=== PATIENT | male | born 1960 | race Caucasian/White ===

== ENCOUNTER 2018-12-17 12:39 | Inpatient (IN) | payer MEDICARE, OTHER ==
[~2018-12-17] VITALS: Ht 182.9 cm; Wt 104.8 kg
[~2018-12-17 12:39] MED LIST: BENA10TA4 PO; FAMO40TA66; FOLI-49; GABA300C16 PO
[2018-12-17 13:21] VITALS: Ht 182.9 cm; Wt 104.8 kg
[2018-12-17] MEDS ORDERED: LEVALBUTEROL (NEB) 1.25 MG/0.5 ML AMP HHN ONE (16:00)
[2018-12-17] MEDS ORDERED: IPRATROPIUM (NEB) 0.5 MG/2.5 ML AMP HHN ONE (16:00)
[2018-12-17] MEDS ORDERED: PIPER-TAZO 2.25 GM (PMX) 50 ML IVPB ONE (16:30)
[2018-12-17] MEDS ORDERED: SODIUM CHLORIDE 0.9% 1L BAG IV* STA (17:21)
[2018-12-17] MEDS ORDERED: VANCOMYCIN 1 GM (PMX) 250 ML IVPB ONE (19:00)
[2018-12-17] MEDS ORDERED: NACL 0.9% 3 ML SYG IV SCH (19:30)
[2018-12-17] MEDS ORDERED: ONDANSETRON 4 MG INJ IV PRN (19:30)
[2018-12-17] MEDS ORDERED: morphine 2 MG INJ IV PRN (19:30)
[2018-12-17] MEDS ORDERED: ALBUTEROL/IPRATROPIUM (NEB) 3 ML AMP HHN STA (23:51)
[2018-12-17] MEDS ORDERED: DEXTROSE 50% 50 ML SYRINGE ONE (23:58)
[2018-12-18] VITALS (23 sets, daily range): BP systolic 60–111; BP diastolic 42–86; PULSE 115–146; RESP 17–42
[2018-12-18] MEDS ORDERED: NA BICARBONATE 8.4% 50 ML SYG IV STA (00:17)
[2018-12-18] MEDS ORDERED: VANCOMYCIN IV PER PHARMACY XX SCH (00:30)
[2018-12-18] MEDS: VANCOMYCIN 1 GM in 250 ML IVPB ONE ×2 (01:00→04:51)
[2018-12-18] MEDS: PIPER-TAZO 2.25 GM (PMX) 50 ML IVPB SCH ×4 (02:00→18:59)
[2018-12-18] MEDS ORDERED: FUROSEMIDE 40 MG INJ ONE (02:48)
[2018-12-18] MEDS ORDERED: HYDROmorphONE 0.5 MG/0.5 ML SYG ONE (02:49)
[2018-12-18] MEDS ORDERED: FUROSEMIDE 40 MG INJ IV SCH (03:30)
[2018-12-18] MEDS ORDERED: HYDROmorphONE 0.5 MG/0.5 ML SYG IV SCH (03:30)
[2018-12-18] MEDS: PANTOPRAZOLE 40 MG INJ IV SCH (06:10)
[2018-12-18] MEDS ORDERED: DEXTROSE 10% 1,000 ML IV SCH (07:30)
[2018-12-18] MEDS ORDERED: DEXTROSE 50% 50 ML SYRINGE IV ONE ×2 (07:30)
[2018-12-18] MEDS ORDERED: NA BICARBONATE 8.4% 50 ML SYG ONE (08:55)
[2018-12-18] MEDS ORDERED: NA BICARBONATE 8.4% 50 ML SYG IV ONE (09:00)
[2018-12-18] MEDS: DEXTROSE 50% 50 ML SYRINGE IV PRN (09:07)
[2018-12-18] MEDS: SODIUM BICARBONATE IN D5W 1,000 ML IV SCH ×2 (09:32→18:42)
[2018-12-18] MEDS ORDERED: LACTULOSE 30ML CUP PO ONE (10:00)
[2018-12-18] MEDS: LEVALBUTEROL (NEB) 1.25 MG/0.5 ML AMP HHN SCH ×4 (11:22→20:17)
[2018-12-18] MEDS ORDERED: DILTIAZEM 25 MG INJ ONE (12:00)
[2018-12-18] MEDS ORDERED: DILTIAZEM 25 MG INJ IV ONE ×2 (12:30→13:30)
[2018-12-18] MEDS: ALBUMIN HUMAN 25% 100 ML IV SCH ×2 (12:49→19:54)
[2018-12-18] MEDS ORDERED: AMIODARONE 150MG/D5W BOLUS 100 ML IV ONE (14:30)
[2018-12-18] MEDS: AMIODARONE IV SCH ×2 (15:26→20:58)
[2018-12-18] MEDS: VASOPRESSIN 60 UNIT in DEXTROSE 5% 57 ML IV SCH (18:59)
[2018-12-19] VITALS (102 sets, daily range): BP systolic 49–184; BP diastolic 11–107; PULSE 97–148; RESP 20–45
[2018-12-19] MEDS ORDERED: LORAZEPAM 2 MG INJ IV PRN (00:30)
[2018-12-19] MEDS: PIPER-TAZO 2.25 GM (PMX) 50 ML IVPB SCH ×4 (00:31→17:38)
[2018-12-19] MEDS: LEVALBUTEROL (NEB) 1.25 MG/0.5 ML AMP HHN SCH ×3 (01:15→08:10)
[2018-12-19] MEDS: PHENYLephrine 80 MG in DEXTROSE 5% 242 ML IV SCH ×4 (01:36→19:20)
[2018-12-19] MEDS: SODIUM BICARBONATE IN D5W 1,000 ML IV SCH (01:48)
[2018-12-19] MEDS: ALBUMIN HUMAN 25% 100 ML IV SCH (03:48)
[2018-12-19] MEDS: PANTOPRAZOLE 40 MG INJ IV SCH (05:34)
[2018-12-19] MEDS ORDERED: VECURONIUM 10 MG VIAL ONE (07:00)
[2018-12-19] MEDS ORDERED: ETOMIDATE 20 MG INJ ONE (07:00)
[2018-12-19] MEDS: VASOPRESSIN 60 UNIT in DEXTROSE 5% 57 ML IV SCH ×2 (07:43→17:59)
[2018-12-19] MEDS: AMIODARONE IV SCH (07:57)
[2018-12-19] MEDS ORDERED: NORepinephrine 8MG/250 ML (PMX 250 ML ONE (08:34)
[2018-12-19] MEDS: PROPOFOL 100 ML IV SCH ×3 (09:30→21:30)
[2018-12-19] MEDS: NORepinephrine 8MG/250 ML (PMX 250 ML IV SCH ×2 (10:12→12:46)
[2018-12-19] MEDS: EPINEPHrine 4 MG in SOD CHLORIDE 0.9% 246 ML IV SCH ×4 (10:54→23:31)
[2018-12-19] MEDS ORDERED: NA BICARBONATE 8.4% 50 ML SYG IV ONE (11:30)
[2018-12-19] MEDS: HYDROCORTISONE 100 MG INJ IV SCH ×2 (12:00→22:06)
[2018-12-19] MEDS: LEVALBUTEROL (HFA) 15 GM INHALER INH SCH ×3 (12:53→21:21)
[2018-12-19] MEDS: NORepinephrine 32 MG in DEXTROSE 5% 218 ML IV SCH (14:26)
[2018-12-19] MEDS ORDERED: DOPamine-D5W 1.6 MG/ML 250 ML IV SCH (22:00)
[2018-12-19] MEDS ORDERED: SOD CHLORIDE 0.9% 500 ML IV ONE (23:30)
[2018-12-20] VITALS (51 sets, daily range): BP systolic 40–200; BP diastolic 16–124; PULSE 0–110; RESP 0–39
[2018-12-20] MEDS: PHENYLephrine 80 MG in DEXTROSE 5% 242 ML IV SCH ×2 (00:06→05:21)
[2018-12-20] MEDS: PIPER-TAZO 2.25 GM (PMX) 50 ML IVPB SCH ×2 (00:07→05:25)
[2018-12-20] MEDS ORDERED: NA BICARBONATE 8.4% 50 ML SYG ONE (00:30)
[2018-12-20] MEDS ORDERED: NA BICARBONATE 8.4% 50 ML SYG IV ONE ×2 (00:30→06:00)
[2018-12-20] MEDS: LEVALBUTEROL (HFA) 15 GM INHALER INH SCH ×3 (00:55→08:09)
[2018-12-20] MEDS: PANTOPRAZOLE 40 MG INJ IV SCH (05:24)
[2018-12-20] MEDS: HYDROCORTISONE 100 MG INJ IV SCH (05:25)
[2018-12-20] MEDS: VASOPRESSIN 60 UNIT in DEXTROSE 5% 57 ML IV SCH (05:48)
[2018-12-20] MEDS: NORepinephrine 32 MG in DEXTROSE 5% 218 ML IV SCH (05:48)
[2018-12-20] MEDS: EPINEPHrine 4 MG in SOD CHLORIDE 0.9% 246 ML IV SCH (06:19)
[2018-12-20] MEDS ORDERED: SODIUM BICARBONATE IN D5W 1,000 ML IV SCH (06:30)
[2018-12-20] MEDS: DEXTROSE 50% 50 ML SYRINGE IV PRN (07:20)
[2018-12-20] MEDS ORDERED: FENTAnyl (DRIP) 1000 mcg/100mL 100 ML IV SCH (08:00)
[2018-12-20] MEDS ORDERED: VANCOMYCIN 1 GM 250 ML IVPB SCH (09:00)
[2018-12-20] MEDS: PROPOFOL 100 ML IV SCH (09:27)
[2018-12-20] MEDS ORDERED: ATROPINE SULFATE 1% 5ML SL PRN (11:00)
== END 2018-12-20 11:26 | disposition expired | DRG 871 ==
LOC: E/R 12:39 → SUATTDRO 18:59 → CANRESERV 23:18 → ICU 12-18 00:16 → EDBEDREQSVC 12-18 00:17
PROVIDERS: ADMIT Internal Medicine; ATTEND Internal Medicine
PROC: 4A133R1 Monitoring of Arterial Saturation, Peripheral, Percutaneous Approach (ICD-10-PCS; 2018-12-18)
PROC: 5A09457 Assistance with Respiratory Ventilation, 24-96 Consecutive Hours, Continuous Positive Airway Pressure (ICD-10-PCS; 2018-12-18)
PROC: 0BH17EZ Insertion of Endotracheal Airway into Trachea, Via Natural or Artificial Opening (ICD-10-PCS; principal; 2018-12-19)
PROC: 5A1945Z Respiratory Ventilation, 24-96 Consecutive Hours (ICD-10-PCS; 2018-12-19)
DX: A41.9 Sepsis, unspecified organism (principal); R65.21 Severe sepsis with septic shock; N17.0 Acute kidney failure with tubular necrosis; J96.01 Acute respiratory failure with hypoxia; G92 Toxic encephalopathy; J18.9 Pneumonia, unspecified organism; E87.2 Acidosis; C22.8 Malignant neoplasm of liver, primary, unspecified as to type; I47.1 Supraventricular tachycardia; K76.6 Portal hypertension; C22.0 Liver cell carcinoma; K57.32 Diverticulitis of large intestine without perforation or abscess without bleeding; D69.6 Thrombocytopenia, unspecified; Z66 Do not resuscitate; I46.9 Cardiac arrest, cause unspecified; K70.30 Alcoholic cirrhosis of liver without ascites; K21.9 Gastro-esophageal reflux disease without esophagitis; I12.9 Hypertensive chronic kidney disease with stage 1 through stage 4 chronic kidney disease, or unspecified chronic kidney disease; N18.9 Chronic kidney disease, unspecified; F10.11 Alcohol abuse, in remission; D64.9 Anemia, unspecified; I48.0 Paroxysmal atrial fibrillation; E86.0 Dehydration; E16.2 Hypoglycemia, unspecified; Z87.891 Personal history of nicotine dependence
CPT/HCPCS: 31500; 36415; 36573; 36600; 71045; 71250; 74176; 76705; 76775; 80048; 80053; 80061; 80202; 80307; 81001; 81003; 82043; 82140; 82803; 82962; 83036; 83605; 83690; 83735; 84100; 84155; 84300; 84443; 84484; 85025; 85610; 85730; 87081; 87086; 93005; 93306; 94002; 94003; 94640; 94660; 94664; 94770; 96374; C9113; J0171; J0282; J1170; J1720; J1940; J2060; J2270; J2370; J2543; J3010; J3370; J7030; J7040; J7050; J7070; P9047